=== PATIENT | female | born 1985 | race Caucasian/White ===

== ENCOUNTER 2016-03-19 18:25 | Inpatient (IN) | payer MEDICAID ==
[~2016-03-19] VITALS: Ht 175.3 cm; Wt 114.3 kg
[2016-03-19 18:30] VITALS: Ht 175.3 cm; Wt 114.3 kg
[2016-03-19 18:40] VITALS: BP 115/76; PULSE 88; RESP 18
[2016-03-19] MEDS ORDERED: OXYTOCIN 30 UNITS/LR 500 ML IV PRN (19:00)
[2016-03-19] MEDS ORDERED: OXYTOCIN 30 UNITS/LR 500 ML IV SCH (19:00)
[2016-03-19] MEDS ORDERED: CEFAZOLIN 2 GM/50 ML (PMX) 50 ML IV SCH (19:00)
[2016-03-19] MEDS ORDERED: CARBOPROST 250 MCG INJ IM PRN (19:00)
[2016-03-19] MEDS ORDERED: METHYLERGONOVINE 0.2 MG INJ IM PRN (19:00)
[2016-03-19] MEDS ORDERED: MISOPROSTOL 200 MCG TAB PR PRN (19:00)
[2016-03-19] MEDS ORDERED: TERBUTALINE 1 ML ONE (19:17)
[2016-03-19] MEDS: LACTATED RINGER'S 1,000 ML IV SCH ×2 (19:25→19:39)
[2016-03-19] MEDS ORDERED: TERBUTALINE 1 MG/ML INJ SC ONE (19:30)
[2016-03-19] MEDS ORDERED: LACTATED RINGER'S 1,000 ML IV ONE (19:37)
[2016-03-19 19:41] LABS: BASOPHILS % 0.5 % (0.0-2.0); EOSINOPHILS # 0.1 10^3/ul (0.0-0.5); EOSINOPHILS % 0.8 % (0.0-7.0); HEMATOCRIT 37.9 % (37.0-47.0); LYMPHOCYTES # 1.1 10^3/ul (0.8-2.9); LYMPHOCYTES % 16.2 % (15.0-51.0); MEAN CORPUSCULAR HGB CONC 34.3 g/dl (32.0-37.0); MEAN CORPUSCULAR VOLUME 90.4 fl (82.0-101.0); MEAN PLATELET VOLUME 9.2 fl (7.4-10.4); MONOCYTE # 0.4 10^3/ul (0.3-0.9); MONOCYTES % 6.2 % (0.0-11.0); NEUTROPHIL # 5.1 10^3/ul (1.6-7.5); NEUTROPHILS % 76.3 % (39.0-77.0); PLATELET COUNT 181 10^3/UL (140-440); RED CELL DISTRIBUTION WIDTH 13.3 % (11.5-14.5); UNCORRECTED WBC 6.7 10^3/ul (4.8-10.8); WHITE BLOOD COUNT 6.7 10^3/ul (4.8-10.8)
[2016-03-19] MEDS ORDERED: FAMOTIDINE 20 MG INJ ONE (19:41)
[2016-03-19] MEDS ORDERED: METOCLOPRAMIDE 10 MG INJ ONE (19:41)
[2016-03-19] MEDS ORDERED: CITRIC ACID/NA CITRATE 30 ML CUP ONE (19:41)
[2016-03-19 19:45] LABS: CONDITION 1
--- NOTE | 2016-03-19 19:52 | HP ---
Date/Time of Note Date/Time of Note DATE: 03/19/16 TIME: 19:44 OB - History Hx of Present Chief Complaint: 31y/o with two previous c/s at 38 2/7 weeks presents in labor Estimated Due Date: Apr 08, 2016 : 3 Para: 2 Spontaneous : 0 Therapeutic : 0 Care: Good Care Ultrasounds: Normal mid trimester US Obstetrical Complications: None Medical Complications: None Past Family/Social History * Past Medical, Surgical, Family and Obstetric Histories reviewed from chart. OB Admission Exam Vital Signs Vital Signs Vital Signs Date Time Temp Pulse Resp B/P Pulse Ox O2 Delivery O2 Flow Rate FiO2 03/19/16 18:40 97.1 88 18 115/76 Room Air Physical Exam HEENT: WNL Heart: Rhythm Normal Lungs: Clear Extremities: Edema Cervical Dilatation: 5cm Effacement: 75% Station: -2 Membranes: Intact Heart Rate: 140's Accelerations: Accelerations Present Decelerations: No Decelerations Varibility: Moderate Contractions on Admission: < 5 Minutes Apart OB Assessment/Plan Other plan: 31y/o with two previous c/s at 38 2/7 weeks in active labor - FHR: No sign of metabolic acidosis- Category I - Continious EFM, toco - CBC, blood type and screen - Analgesia options with R/B/A discussed in detail with patient - Obtain her PN record for family clinic The risk of delivery including but not limited to bleeding, infection, injury to other organs (bowel, bladder, ureter, vessels, nerves), injury to fetus, blood transfusion, blood transfusion related infection, risk of anesthesia, adhesion, needs for future , removal of uterus or any other indicated surgery was discussed with the patient and her family. She expressed understanding. All of her questions were answered. She will be signed the informed consent PHYSICIAN'S VERIFICATION OF INFORMED CONSENT- The patient was counseled regarding the procedure, its indications, risks, potential complications and alternatives and any questions were answered. Consent was obtained. PLANNED PROCEDURE/TREATMENT: delivery with possible vacuum/forceps delivery PHYSICIAN'S VERIFICATION OF INFORMED CONSENT FOR BLOOD TRANSFUSION There is a reasonable possibility that blood transfusion will be necessary as a result of the patient's procedure. I have discussed the following with the patient/patient's legal software support representative: An explanation of the benefits and risks of the transfusion of blood or blood products and the possible alternatives. Al questions have been answered to the patient's/patients legal representatives satisfaction. INFORMED CONSENT: The patient has been informed of: - The nature of the proposed care, treatment, services, medications, interventions or procedures. - Potential benefits, risks or side effects, including potential problems related to recuperation. - The likelihood of achieving care treatment and service goals. - Reasonable alternatives to the proposed care, treatment and service. - The relevant risks, benefits and side effects related to alternatives, including the possible results of not receiving care, treatment and services. - When indicated, any limitations on the confidentiality of information learned from or about the patient. - If appropriate, the risks, benefits and alternatives of the drugs to be used for sedation/analgesia including moderate sedation. - If appropriate, patient has been provided information on the risks, benefits and alternatives to the transfusion of blood and/or blood products. - If appropriate, patient has been provided information regarding the Armando Hemal Blood Act. - MD PELON Sousa SEDI Mar 19, 2016 19:52
[2016-03-19 19:54] LABS: PARTIAL THROMBOPLASTIN TIME 26.7 Sec (25.0-35.0)
[2016-03-19] MEDS ORDERED: CITRIC ACID/NA CITRATE 30 ML CUP PO ONE (20:00)
[2016-03-19] MEDS ORDERED: METOCLOPRAMIDE 10 MG INJ IV ONE (20:00)
[2016-03-19] MEDS ORDERED: FAMOTIDINE 20 MG INJ IV ONE (20:00)
[2016-03-19] MEDS ORDERED: morphine SULFATE/PF (10 MG/10 ML) INJ ONE (20:10)
[2016-03-19] MEDS ORDERED: FENTAnyl 50 MCG/ML VIAL ONE (20:10)
[2016-03-19] MEDS ORDERED: PHENYLephrine (100 MCG/ML) 5ML SYG ONE ×3 (20:26→20:56)
[2016-03-19 20:28] LABS: PROTIME 12.7 Sec (12.2-14.2)
[2016-03-19 20:29] LABS: INR 0.95
[2016-03-19] MEDS ORDERED: ONDANSETRON 4 MG INJ ONE (20:40)
[2016-03-19] MEDS ORDERED: DIPHENHYDRAMINE 50 MG INJ IV PRN ×2 (21:00→22:00)
[2016-03-19] MEDS ORDERED: KETOROLAC 30 MG INJ IV PRN ×2 (21:00→22:00)
[2016-03-19] MEDS ORDERED: HYDROmorphONE (0.2 MG/ML) 10ML SYG IV PRN (21:00)
[2016-03-19] MEDS ORDERED: MEPERIDINE 25 MG INJ IV PRN (21:00)
[2016-03-19] MEDS ORDERED: ONDANSETRON 4 MG INJ IV PRN ×2 (21:00→22:00)
[2016-03-19] MEDS ORDERED: PROCHLORPERAZINE 10 MG INJ IV PRN ×2 (21:00→22:00)
[2016-03-19] MEDS ORDERED: FENTAnyl 50 MCG/ML VIAL IV PRN (21:00)
[2016-03-19] MEDS ORDERED: OXYTOCIN 30 UNITS/LR 500 ML IV ONE (21:07)
[2016-03-19] MEDS ORDERED: NALOXONE (0.4 MG/ML) INJ IV PRN (22:00)
[2016-03-19] MEDS ORDERED: ZOLPIDEM 5 MG TAB PO PRN (22:00)
[2016-03-19] MEDS ORDERED: HYDROmorphONE 1 MG/ML SYG IV PRN ×2 (22:00)
[2016-03-19 22:21] LABS: BARBITURATES Negative (NEGATIVE); BENZODIAZEPINES Negative (NEGATIVE); CANNABINOIDS Negative (NEGATIVE); COCAINE Negative (NEGATIVE); OPIATES Negative (NEGATIVE)
[2016-03-19] MEDS: DEXTROSE 5%-LR 1,000 ML IV SCH (23:35)
[2016-03-19] MEDS: OXYTOCIN 30 UNITS/LR 500 ML IV SCH (23:47)
--- NOTE | 2016-03-19 23:47 | OPR ---
Operative Report Planned Procedure Free Text/Dictation 31 year-old, [id number], with single intrauterine at 38 2/7 weeks with previous C/s in active labor. Procedure date Mar 19, 2016 Procedure(s) Repeat C/S Performed by: INDY BIRD Assisting provider: ROMINA CARVALHO Anesthesia Type: spinal Procedure Description INDICATION & HISTORY The patient is a 31 year-old, [id number], with single intrauterine at 38 2/7 weeks with previous C/s in active labor. The risks of delivery including but not limited to bleeding, infection, injury to other organs (bowel, bladder, ureters, vessels, nerves), injury to the , blood transfusion, blood transfusion related infections, removal of uterus, risk of anesthesia, risks with future , repeat , adhesion/ hernia formation discussed in detail with the patient. She voiced understanding and agreed with . She signed the informed consent. DESCRIPTION OF OPERATION: The patient was taken to the operating room, where she was identified and the procedure was verified. She received spinal anesthesia. The patient was placed in dorsal supine position with the left tilt. The heart rate was 138 per minute. The patient was then prepped and draped in the normal sterile fashion. The Pfannenstiel skin incision was made, and carried down to the fascia with the knife. The fascia was incised in the midline, and the fascial incision was carried laterally with the Davidson scissors. The superior portion of the fascial incision was then grasped with Feliciano clamps, tented up and dissected off the underlying rectus muscle with sharp dissection. The lower portion of the fascial incision was then made in a similar fashion. The rectus muscle was and the peritoneum was entered. The peritoneal incision was then stretched and a bladder blade was inserted. Then, an incision was made in the lower uterine segment in a transverse fashion with the knife and extended bluntly. The was delivered atraumatically in cephalic presentation, with the above findings. The resuscitation team was present and the baby was handed to them. A cord blood sample was obtained for further evaluation. The placenta and membranes, which appeared normal were removed. The uterus was exteriorized and cleared of all clots and debris. The uterus was then closed in a two layer fashion with 0 Vicryl. At the time of closure, hemostasis was noted. The gutters were irrigated. The peritoneum was reapproximated with 3-0 Vicryl. The muscle was reapproximated with 3-0 Vicryl. The fascia approximated with 0 Vicryl in a running fashion. The subcutaneous closed with 3/0 vicryl. The skin was closed with 4-0 Monocryl. All instrument, sponge, lap, and needle counts were correct x4. The patient tolerated the procedure well. She was transferred to the recovery room in stable condition. The patient received 2 g Ancef 30 minutes prior to surgery. Post-Procedure Findings: Live Baby [], Apgars [] and [], weight [], position [], [] presentation []cord. Physician Certification I, the undersigned physician, hereby certify that I have discussed the procedure described in this consent form with this patient (or the patient's legal cash application representative), including: * The risk and benefits of the procedure; * Any adverse reactions that may reasonably be expected to occur; * Any alternative efficacious methods of treatment which may be medically viable ; * The potential problems that may occur during recuperation; * Potential for blood transfusion and associated risks/benefits; and * Any research or economic interest I may have regarding this treatment. I further certify that the patient/legally responsible person was encouraged to ask question and that all questions were answered. INDY BIRD Mar 19, 2016 23:47
[2016-03-20] MEDS ORDERED: OXYCODONE/ACETAMINOPHEN (5/325) TAB PO PRN
[2016-03-20] MEDS ORDERED: METHYLERGONOVINE 0.2 MG INJ IM PRN
[2016-03-20] MEDS ORDERED: METHYLERGONOVINE 0.2 MG TAB PO PRN
[2016-03-20] MEDS ORDERED: CARBOPROST 250 MCG INJ IM PRN
[2016-03-20] MEDS ORDERED: LANOLIN 7 GM TUBE TOP PRN
[2016-03-20] MEDS ORDERED: OXYTOCIN 30 UNITS/LR 500 ML IV PRN
[2016-03-20] MEDS ORDERED: MISOPROSTOL 200 MCG TAB PR PRN
[2016-03-20] MEDS ORDERED: ONDANSETRON 4 MG INJ IV PRN (00:30)
[2016-03-20] MEDS ORDERED: HYDROmorphONE 1 MG/ML SYG IV PRN ×2 (00:30)
[2016-03-20] MEDS ORDERED: ZOLPIDEM 5 MG TAB PO PRN (00:30)
[2016-03-20] MEDS ORDERED: PROCHLORPERAZINE 10 MG INJ IV PRN (00:30)
[2016-03-20] MEDS ORDERED: DIPHENHYDRAMINE 50 MG INJ IV PRN (00:30)
[2016-03-20] MEDS ORDERED: KETOROLAC 30 MG INJ IV PRN (00:30)
[2016-03-20] MEDS ORDERED: NALOXONE (0.4 MG/ML) INJ IV PRN (00:30)
[2016-03-20 00:40] VITALS: BP 116/77; PULSE 74; RESP 18
[2016-03-20] MEDS: OXYTOCIN 30 UNITS/LR 500 ML IV SCH (04:15)
[2016-03-20 04:30] VITALS: BP 107/62; PULSE 74; RESP 20
[2016-03-20] MEDS: IBUPROFEN 800 MG TAB PO SCH ×4 (06:00→21:52)
[2016-03-20] MEDS: DEXTROSE 5%-LR 1,000 ML IV SCH ×3 (07:35→21:58)
[2016-03-20 08:00] VITALS: BP 107/57; PULSE 88; RESP 18
[2016-03-20] MEDS: OXYCODONE/ACETAMINOPHEN (5/325) TAB PO SCH ×4 (08:00→23:40)
[2016-03-20] MEDS: SENNA/DOCUSATE NA (8.6MG/50MG) TAB PO SCH ×2 (08:19→21:10)
[2016-03-20 08:20] LABS: BASOPHILS % 0.3 % (0.0-2.0); EOSINOPHILS % 0.5 % (0.0-7.0); HEMATOCRIT 28.6 % (37.0-47.0); HEMOGLOBIN 9.9 g/dl (12.0-16.0); LYMPHOCYTES % 11.1 % (15.0-51.0); MEAN CORPUSCULAR HEMOGLOBIN 31.2 pg (29.0-33.0); MEAN CORPUSCULAR HGB CONC 34.7 g/dl (32.0-37.0); MEAN PLATELET VOLUME 8.8 fl (7.4-10.4); MONOCYTE # 0.6 10^3/ul (0.3-0.9); MONOCYTES % 7.1 % (0.0-11.0); PLATELET COUNT 142 10^3/UL (140-440); RED BLOOD COUNT 3.18 10^6/ul (4.20-5.40); RED CELL DISTRIBUTION WIDTH 13.2 % (11.5-14.5); UNCORRECTED WBC 8.6 10^3/ul (4.8-10.8); WHITE BLOOD COUNT 8.6 10^3/ul (4.8-10.8)
[2016-03-20 08:29] LABS: CONDITION 1
--- NOTE | 2016-03-20 10:17 | PN ---
Date/Time of Note Date/Time of Note DATE: 03/20/16 TIME: 10:15 OB Subjective Subjective Subjective Post day 1 Vital sign a stable afebrile abdomen soft lochia normal extremity normal ambulate after 6 PM today OB Assessment/Plan Plan: Expectant Management PAUL PORRAS MD Mar 20, 2016 10:17
[2016-03-20 16:00] VITALS: BP 100/72; PULSE 89; RESP 19
[2016-03-20 20:00] VITALS: BP 107/70; PULSE 85; RESP 18
[2016-03-21] MEDS: OXYCODONE/ACETAMINOPHEN (5/325) TAB PO SCH ×3 (00:59→17:47)
[2016-03-21 04:00] VITALS: BP 103/74; PULSE 100; RESP 18
[2016-03-21] MEDS: IBUPROFEN 800 MG TAB PO SCH ×3 (05:24→21:34)
[2016-03-21 08:30] VITALS: BP 122/98; PULSE 97; RESP 19
[2016-03-21] MEDS ORDERED: INFLUENZA VIRUS VACCINE 0.5 ML (DISPENSING) IM* ONE (09:00)
--- NOTE | 2016-03-21 10:04 | PN ---
Date/Time of Note Date/Time of Note DATE: 03/21/16 TIME: 10:02 OB Subjective Subjective Subjective Post day 2 Afebrile abdomen soft uterus firm lochia normal extremity incision dry no bowel movement enema recommended PAUL PORRAS MD Mar 21, 2016 10:04
[2016-03-21] MEDS ORDERED: NA PHOSPHATE/BIPHOS 133 ML ENEMA PR ONE (10:30)
[2016-03-21] MEDS: SENNA/DOCUSATE NA (8.6MG/50MG) TAB PO SCH ×2 (12:05→21:34)
[2016-03-21 16:00] VITALS: BP 109/77; PULSE 79; RESP 19
[2016-03-21 20:30] VITALS: BP 106/70; PULSE 94; RESP 18
[2016-03-22] MEDS: OXYCODONE/ACETAMINOPHEN (5/325) TAB PO SCH (00:54)
[2016-03-22 04:03] VITALS: BP 106/74; PULSE 79; RESP 18
[2016-03-22] MEDS: IBUPROFEN 800 MG TAB PO SCH (05:39)
[2016-03-22 07:30] VITALS: BP 107/73; PULSE 83; RESP 20
[2016-03-22] MEDS ORDERED: DIPHTH/TET/ACEL PERTUSS (ADULT) 0.5 ML VIAL IM* ONE (09:00)
[2016-03-22] MEDS ORDERED: MEASLES,MUMPS,RUBELLA VACCINE INJ SC* ONE (09:00)
[2016-03-22] MEDS: SENNA/DOCUSATE NA (8.6MG/50MG) TAB PO SCH (09:04)
--- NOTE | 2016-03-22 11:47 | PD.PPDC ---
[employer] Discharge Instruction Condition Patient Condition: Good Diet Diet: Resume Regular Diet Activity/Restrictions Activity: Normal Activity May Shower Wound/Drain Care Instructions Wound/Drain Care Instructions: Remove Steri Strips in 1 week Follow-up Follow-up with Physician: 4, Day/Days Provider Information: Appointment clinic in 4 days to DC her sanchez Return to clinic for [employer] Instructions: Fever greater than 101 Worsening abdominal pain Excessive Vaginal Bleeding More than 2 pads per hour Surgical Instructions: Incisional Drainage Incisional Redness PAUL PORRAS MD Mar 22, 2016 11:47
--- NOTE | 2016-03-22 11:50 | DS ---
Date/Time of Note Date/Time of Note DATE: 03/22/16 TIME: 11:48 Obstetrical Discharge Record Final Diagnosis Final Diagnosis: Term delivered Section Section: Repeat Condition on Discharge Physical Assessment Last Vitals: Post day 3 Afebrile vital sign a stable abdomen soft incision dry bowel sounds present had normal bowel movement extremity normal discharged home with follow-up instructions to be seen at the clinic in 4 days to DC sanchez patient received prescription of Motrin 600 mg and Tylenol 3 for postop pain. Voiding: Yes Bowel Movement: Yes Breast: Soft, non-tender, Filling Fundus: Firm Abdomen and Incision: Dry healing well Calf Tenderness: No Patient Condition: Good PAUL PORRAS MD Mar 22, 2016 11:50
[2016-03-22 15:45] VITALS: BP 113/72; PULSE 84; RESP 20
== END 2016-03-22 16:57 | disposition home or self-care (01) | DRG 766 ==
LOC: OBT 18:25 → L-D 18:26 → OBT 18:35 → L-D 18:35 → PP1 03-20 00:36 → EDSTATUS 03-31 17:03
PROVIDERS: ADMIT Obstetrics & Gynecology; ATTEND Obstetrics & Gynecology
PROC: 10D00Z1 Extraction of Products of Conception, Low, Open Approach (ICD-10-PCS; principal; 2016-03-19 20:45)
PROC: 3E00X4Z Introduction of Serum, Toxoid and Vaccine into Skin and Mucous Membranes, External Approach (ICD-10-PCS; 2016-03-22)
DX: O34.211 Maternal care for low transverse scar from previous cesarean delivery (principal); O99.214 Obesity complicating childbirth; Z68.37 Body mass index [BMI] 37.0-37.9, adult; Z23 Encounter for immunization; Z3A.38 38 weeks gestation of pregnancy; Z37.0 Single live birth
CPT/HCPCS: 80307; 85025; 85610; 85730; 86592; 86703; 86762; 86850; 86900; 86901; 87340; 90686; 90715; 99464; G0463; J0690; J1200; J2274; J2370; J2405; J2590; J2765; J3010; J3105; J7120; J7121

== ENCOUNTER 2017-10-13 05:37 | Inpatient (IN) | END 2017-10-16 16:13 | disposition home or self-care (01) | DRG 765 ==